=== PATIENT | female | born 1960 | race Caucasian/White ===

== ENCOUNTER → 2017-08-19 | Outpatient (CLI) | payer OTHER ==
--- NOTE | 2017-08-19 16:37 | REP ---
Bilateral screening digital mammogram: There are no palpable abnormalities or other breast complaints. The patient states she had a clinical breast exam in August 2017. Comparison is 02/12/2011. The breast parenchyma is predominately adipose, unchanged. There has been no interval development of masses, areas of structural distortion or clusters of microcalcifications typical of malignancy. Impression: There is no evidence of malignancy. BIRADS category 1 negative mammogram. The patient should have a repeat mammogram in 1 year. This mammogram was interpreted with the aid of an FDA-approved computer-aided detection system. A. Negative x-ray reports should not delay biopsy if a dominant or clinically suspicious mass is present. B. Not all breast cancers are identified by x-ray. C. Adenosis and dense breasts may obscure an underlying neoplasm The patient letter being requested is M1.
== END ==
LOC: M WHC 10:08
PROVIDERS: ATTEND Nurse Practitioner Women's Health
DX: Z12.31 Encounter for screening mammogram for malignant neoplasm of breast (principal)

== ENCOUNTER → 2017-08-19 | Outpatient (REF) | payer OTHER | LOC: M SFHCWAGY 10:21 | PROVIDERS: ATTEND Nurse Practitioner Women's Health | DX: Z12.4 Encounter for screening for malignant neoplasm of cervix (principal); N95.2 Postmenopausal atrophic vaginitis ==

== ENCOUNTER → 2018-03-03 | Outpatient (REF) | payer OTHER | LOC: M SFHCLERA 20:26 | DX: Z20.818 Contact with and (suspected) exposure to other bacterial communicable diseases (principal) ==

== ENCOUNTER → 2018-08-22 | Outpatient (CLI) | payer OTHER | LOC: M WHC 11:07 | DX: Z12.31 Encounter for screening mammogram for malignant neoplasm of breast (principal); Z78.0 Asymptomatic menopausal state; Z92.29 Personal history of other drug therapy; Z80.3 Family history of malignant neoplasm of breast | CPT/HCPCS: 77067 ==

== ENCOUNTER → 2022-03-19 | Outpatient (CLI) | payer OTHER, SELFPAY ==
[~2022-03-19] MED LIST: CELE100C PO; HYDR12CA PO; LEVO112T2 PO; LIDOCAINE 1% MDV 20ML VIAL As Ordered ONE; OMEP1CAP73 PO
[2022-03-19 13:37] VITALS: BP 158/81
== END ==
LOC: M IRPRO 12:04
PROVIDERS: ATTEND Internal Medicine Endocrinology, Diabetes & Metabolism
DX: R59.0 Localized enlarged lymph nodes (principal)

== ENCOUNTER → 2022-04-02 | Outpatient (REF) | payer OTHER ==
[~2022-04-02] MED LIST changes: -LIDOCAINE 1% MDV 20ML VIAL As Ordered ONE
== END ==
LOC: M LAB REF 15:16
PROVIDERS: ATTEND Internal Medicine Endocrinology, Diabetes & Metabolism
DX: E04.1 Nontoxic single thyroid nodule (principal)

== ENCOUNTER → 2022-07-24 | Outpatient (CLI) | payer OTHER ==
[~2022-07-24] MED LIST changes: +ISOVUE-370 76% 100ML VIAL As Ordered ONE
== END ==
LOC: M RAD 16:20
PROVIDERS: ATTEND Otolaryngology
DX: R22.1 Localized swelling, mass and lump, neck (principal); M50.31 Other cervical disc degeneration, high cervical region; M50.321 Other cervical disc degeneration at C4-C5 level; M50.322 Other cervical disc degeneration at C5-C6 level; M50.323 Other cervical disc degeneration at C6-C7 level
CPT/HCPCS: 70491; Q9967

== ENCOUNTER → 2023-08-23 | Outpatient (CLI) | payer OTHER | LOC: M RAD 08:53 | PROVIDERS: ATTEND Otolaryngology | DX: C07 Malignant neoplasm of parotid gland (principal); Z98.890 Other specified postprocedural states | CPT/HCPCS: 70491; Q9967 ==

== ENCOUNTER 2024-11-23 21:41 | Inpatient (IN) | payer MEDICARE, OTHER ==
[~2024-11-23] VITALS: Ht 157.5 cm; Wt 92.3 kg
[~2024-11-23 21:41] MED LIST changes: -ISOVUE-370 76% 100ML VIAL As Ordered ONE
[2024-11-23 22:14] LABS: VENOUS BASE EXCESS 0.7 (-2.0-2.0); VENOUS HCO3 30.2 MMOL/L (23.0-27.0); VENOUS O2 SATURATION 48.3 % (60.0-80.0); VENOUS PARTIAL PRESSURE CO2 74.4 mmHg (38.0-50.0); VENOUS PARTIAL PRESSURE O2 34.4 mmHg (30.0-50.0); VENOUS PH 7.226 UNITS (7.330-7.430); VENOUS TOTAL CO2 32.5 MMOL/L (24.0-28.0)
[2024-11-23 22:22] LABS: HEMATOCRIT 35.4 % (36.0-47.0); HEMOGLOBIN 11.6 g/dl (12.0-15.5); MEAN CORPUSCULAR HEMOGLOBIN 35.9 pg (27.0-33.0); MEAN CORPUSCULAR HGB CONC 32.8 g/dl (32.0-36.5); MEAN CORPUSCULAR VOLUME 109.6 fl (80.0-96.0); PLATELET COUNT, AUTOMATED 125 10^3/uL (150-450); RED BLOOD COUNT 3.23 10^6/uL (4.00-5.40); WHITE BLOOD COUNT 8.6 10^3/uL (4.0-10.0)
[2024-11-23 22:36] LABS: INR 1.08; PROTHROMBIN TIME 14.4 SECONDS (12.5-14.5)
[2024-11-23 22:39] LABS: BLOOD UREA NITROGEN 18 MG/DL (9-23); CALCIUM LEVEL 8.6 MG/DL (8.3-10.6); CARBON DIOXIDE LEVEL 31 MMOL/L (20-31); CHLORIDE LEVEL 101 MMOL/L (98-107); CPK CREATINE PHOSPHOKINASE 126 U/L (34-145); CREATININE FOR GFR 0.68 MG/DL (0.55-1.30); GLOMERULAR FILTRATION RATE > 60.0 (>45); GLUCOSE, FASTING 99 MG/DL (74-106); POTASSIUM SERUM 3.6 MMOL/L (3.5-5.1); SODIUM LEVEL 135 MMOL/L (136-145)
[2024-11-23 22:40] LABS: CK-MB VALUE MASS 1.3 NG/ML (<3.6); MB/CK RELATIVE INDEX 1.03 (< OR =4)
[2024-11-23] MEDS: ONDANSETRON 4MG 2ML VIAL IV ONE (22:59)
[2024-11-23] MEDS: HYDROMORPHONE HCL 0.5 MG/ 0.5 ML SYRINGE IV PRN (23:00)
[2024-11-24] MEDS: ACETAMINOPHEN *IV* 1,000 MG in IV 1 EA IV ONE (00:16)
[2024-11-24] MEDS ORDERED: HYDROMORPHONE HCL 0.5 MG/ 0.5 ML SYRINGE IV PRN (01:05)
[2024-11-24] MEDS ORDERED: MOM 30ML SUSPENSION UDC PO PRN (01:05)
[2024-11-24] MEDS ORDERED: MAALOX 30 ML SUSP *UDC PO PRN (01:05)
[2024-11-24] MEDS ORDERED: NALOXONE INJ 0.4MG/1ML VIAL IV PRN (01:05)
[2024-11-24] MEDS: LR 1,000 ML IV SCH (01:05)
[2024-11-24 01:40] LABS: ETHYL ALCOHOL (ETHANOL) 0.146 % (0.000-0.010); MAGNESIUM LEVEL 1.3 MG/DL (1.8-2.4)
[2024-11-24] MEDS ORDERED: SYNT88TA2 PO (01:58)
[2024-11-24] MEDS ORDERED: ELIQ5TAB PO (01:58)
[2024-11-24] MEDS ORDERED: ALBU8.5H INH (01:58)
[2024-11-24] MEDS ORDERED: RHODIOLA PO (01:58)
[2024-11-24] MEDS ORDERED: THERTAB52 PO (01:58)
[2024-11-24] MEDS ORDERED: CELE1CAP99 PO (01:58)
[2024-11-24] MEDS ORDERED: HOME MED LIST COMPLETE! XX SCH (02:00)
[2024-11-24] MEDS: HYDROMORPHONE HCL 0.5 MG/ 0.5 ML SYRINGE IV PRN ×2 (05:26→11:11)
[2024-11-24 08:16] LABS: BASO # 0.1 10^3/uL (0.0-0.2); BASO % 0.5 % (0.0-1.0); EOS % 0.1 % (0.0-3.0); HEMATOCRIT 32.7 % (36.0-47.0); HEMOGLOBIN 10.7 g/dl (12.0-15.5); LYMPH % 9.3 % (24.0-44.0); MEAN CORPUSCULAR HEMOGLOBIN 35.8 pg (27.0-33.0); MEAN CORPUSCULAR HGB CONC 32.7 g/dl (32.0-36.5); MEAN CORPUSCULAR VOLUME 109.4 fl (80.0-96.0); MONO # 0.6 10^3/uL (0.0-0.8); MONO % 5.3 % (2.0-8.0); NEUTROPHILS # 9.1 10^3/uL (1.5-8.5); NEUTROPHILS % 82.9 % (36.0-66.0); PLATELET COUNT, AUTOMATED 120 10^3/uL (150-450); RED BLOOD COUNT 2.99 10^6/uL (4.00-5.40); WHITE BLOOD COUNT 10.9 10^3/uL (4.0-10.0)
[2024-11-24 08:46] LABS: ALBUMIN 2.9 G/DL (3.2-5.2); ALKALINE PHOSPHATASE 87 U/L (35-104); ALT/SGPT 86 U/L (7.0-40); AST/SGOT 95 U/L (<34); BILIRUBIN,TOTAL 0.7 MG/DL (0.3-1.2); BLOOD UREA NITROGEN 17 MG/DL (9-23); CALCIUM LEVEL 8.6 MG/DL (8.3-10.6); CARBON DIOXIDE LEVEL 30 MMOL/L (20-31); CHLORIDE LEVEL 102 MMOL/L (98-107); CREATININE FOR GFR 0.53 MG/DL (0.55-1.30); GLOMERULAR FILTRATION RATE > 60.0 (>45); GLUCOSE, FASTING 114 MG/DL (74-106); POTASSIUM SERUM 4.3 MMOL/L (3.5-5.1); SODIUM LEVEL 135 MMOL/L (136-145); TOTAL PROTEIN 9.8 G/DL (5.7-8.2)
[2024-11-24] MEDS: MULTIVITAMINS/MINERALS THERAP 1 TAB PO SCH (09:00)
[2024-11-24] MEDS: THIAMINE 100 MG TAB PO SCH (09:00)
[2024-11-24] MEDS: FOLIC ACID 1MG TAB PO SCH (09:00)
[2024-11-24] MEDS: DOCUSATE SODIUM 100MG CAPSULE PO SCH (10:03)
[2024-11-24] MEDS: hydroCHLOROthiazide 12.5 MG CAPSULE PO SCH (11:12)
[2024-11-24] MEDS: LEVOTHYROXINE 88MCG TABLET (0.088 MG) PO SCH (11:35)
[2024-11-24] MEDS: ACETAMINOPHEN 325 MG TAB PO PRN (11:36)
[2024-11-24 12:22] LABS: MAGNESIUM LEVEL 1.2 MG/DL (1.8-2.4)
[2024-11-24 14:00] VITALS: BP 141/98; TEMP 97.9; O2SAT 95
[2024-11-24] MEDS: MAG SULF 1GM/100ML (MAG RUN) 1 GM in IV 1 EA IV SCH (14:00)
[2024-11-24 14:15] VITALS: BP 162/85
[2024-11-24] MEDS: LORazepam 2 MG TAB PO PRN (14:35)
[2024-11-24] MEDS: PANTOPRAZOLE 40MG TAB (PROTONIX) PO SCH (16:51)
[2024-11-24 16:52] LABS: HEMATOCRIT 29.2 % (36.0-47.0); HEMOGLOBIN 9.6 g/dl (12.0-15.5); MEAN CORPUSCULAR HEMOGLOBIN 36.2 pg (27.0-33.0); MEAN CORPUSCULAR HGB CONC 32.9 g/dl (32.0-36.5); MEAN CORPUSCULAR VOLUME 110.2 fl (80.0-96.0); PLATELET COUNT, AUTOMATED 108 10^3/uL (150-450); RED BLOOD COUNT 2.65 10^6/uL (4.00-5.40); WHITE BLOOD COUNT 9.6 10^3/uL (4.0-10.0)
[2024-11-24 19:54] VITALS: BP 146/96; TEMP 97.9; O2SAT 94
[2024-11-24 20:30] VITALS: BP 146/96
[2024-11-25] VITALS (16 sets, daily range): BP systolic 98–148; BP diastolic 58–98; TEMP 97–98.1; O2SAT 94–97
[2024-11-25 01:27] LABS: BASO % 0.3 % (0.0-1.0); EOS % 0.5 % (0.0-3.0); HEMATOCRIT 27.4 % (36.0-47.0); LYMPH # 1.1 10^3/uL (1.5-5.0); LYMPH % 12.9 % (24.0-44.0); MEAN CORPUSCULAR HGB CONC 32.8 g/dl (32.0-36.5); MEAN CORPUSCULAR VOLUME 109.6 fl (80.0-96.0); MONO # 0.7 10^3/uL (0.0-0.8); MONO % 7.7 % (2.0-8.0); NEUTROPHILS # 6.7 10^3/uL (1.5-8.5); NEUTROPHILS % 76.7 % (36.0-66.0); PLATELET COUNT, AUTOMATED 107 10^3/uL (150-450); WHITE BLOOD COUNT 8.7 10^3/uL (4.0-10.0)
[2024-11-25] MEDS ORDERED: ONDANSETRON 4MG 2ML VIAL As Ordered ONE (07:37)
[2024-11-25] MEDS ORDERED: propofoL 200 MG/20 ML VIAL As Ordered ONE (07:37)
[2024-11-25] MEDS ORDERED: LIDOCAINE 2% 100MG/5ML SDV (FOR ANES.) As Ordered ONE (07:37)
[2024-11-25] MEDS ORDERED: ROCURONIUM BROMIDE 50MG/5ML VIAL As Ordered ONE (07:37)
[2024-11-25] MEDS ORDERED: fentaNYL 100 MCG/2 ML INJECTION As Ordered ONE (07:37)
[2024-11-25] MEDS ORDERED: MIDAZOLAM INJ 2MG/2ML VIAL As Ordered ONE (07:37)
[2024-11-25] MEDS: METHOCARBAMOL 1,000 MG/10 ML VIAL IV PRN (07:43)
[2024-11-25] MEDS ORDERED: ALBUTEROL SULFATE 2.5MG/0.5ML INH NEB SOLN INH PRN (08:30)
[2024-11-25] MEDS ORDERED: MEPERIDINE 25 MG/ML 1ML VIAL IV PRN (08:30)
[2024-11-25] MEDS ORDERED: HYDROMORPHONE HCL 0.5 MG/ 0.5 ML SYRINGE IV PRN (08:30)
[2024-11-25] MEDS ORDERED: PROMETHAZINE 25MG/ML 1ML VIAL IV PRN ×2 (08:30→12:00)
[2024-11-25] MEDS ORDERED: ONDANSETRON 4MG 2ML VIAL IV PRN (08:30)
[2024-11-25] MEDS: ceFAZolin 2 GM/D5W 50 ML IV BAG As Ordered ONE (08:49)
[2024-11-25] MEDS: TRANEXAMIC ACID 100 MG/ML 10ML VIAL As Ordered ONE (09:08)
[2024-11-25] MEDS ORDERED: PHENYLEPHRINE 10MG/ML 1ML VIAL As Ordered ONE (09:17)
[2024-11-25] MEDS ORDERED: PHENYLephrine 500MCG 5ML (100MCG/ML) SYRINGE As Ordered ONE (09:20)
[2024-11-25] MEDS ORDERED: ePHEDrine SULFATE 25 MG/5 ML(5MG/ML) SYRINGE As Ordered ONE (09:20)
[2024-11-25] MEDS ORDERED: SUGAMMADEX SODIUM 500 MG/5 ML VIAL (BRIDION) As Ordered ONE (09:20)
[2024-11-25] MEDS ORDERED: LACRILUBE (AKWA TEARS) OPHTH OINT 3.5GM As Ordered ONE (09:25)
[2024-11-25] MEDS: BUPivacaine LIPOSOME/PF 266MG 20ML VIAL (13.3MG/ML)(EXPAREL) As Ordered ONE (09:49)
[2024-11-25] MEDS: ONDANSETRON 4MG 2ML VIAL IV PRN (12:07)
[2024-11-25] MEDS: ceFAZolin SOD 2 GM in IV 1 EA IV SCH (17:00)
[2024-11-25] MEDS: PERCOCET 5MG/325MG TAB PO PRN (18:35)
[2024-11-25 18:43] LABS: HEMATOCRIT 25.3 % (36.0-47.0); HEMOGLOBIN 8.3 g/dl (12.0-15.5); MEAN CORPUSCULAR HGB CONC 32.8 g/dl (32.0-36.5); MEAN CORPUSCULAR VOLUME 106.8 fl (80.0-96.0); RED BLOOD COUNT 2.37 10^6/uL (4.00-5.40); WHITE BLOOD COUNT 7.8 10^3/uL (4.0-10.0)
[2024-11-25 19:07] LABS: PLATELET COUNT, AUTOMATED 77 10^3/uL (150-450)
[2024-11-25 19:08] LABS: BLOOD UREA NITROGEN 8 MG/DL (9-23); CALCIUM LEVEL 7.7 MG/DL (8.3-10.6); CARBON DIOXIDE LEVEL 34 MMOL/L (20-31); CHLORIDE LEVEL 100 MMOL/L (98-107); CREATININE FOR GFR 0.55 MG/DL (0.55-1.30); GLOMERULAR FILTRATION RATE > 60.0 (>45); GLUCOSE, FASTING 122 MG/DL (74-106); POTASSIUM SERUM 3.9 MMOL/L (3.5-5.1); SODIUM LEVEL 137 MMOL/L (136-145)
[2024-11-25 19:25] LABS: IRON (FE) 88 UG/DL (50-170); PERCENT SATURATION 45.1 % (13.2-45.0); TOTAL IRON BINDING CAPACITY 195 UG/DL (250-425)
[2024-11-25 19:27] LABS: FERRITIN 882.1 NG/ML (7.3-270.7)
[2024-11-25 19:28] LABS: FOLATE 16.32 NG/ML (>5.4); VITAMIN B12 LEVEL 738 PG/ML (211-911)
[2024-11-25] MEDS: IPRATROPIUM 0.5MG/ALBUTEROL 2.5MG INH SOL UD 3ML (DUONEB) NEB SCH (20:00)
[2024-11-25] MEDS ORDERED: HEPARIN SOD (PORCINE) 5000UNITS/ML 1ML VIAL/SYRINGE SQ SCH (22:00)
[2024-11-26] VITALS (12 sets, daily range): BP systolic 99–120; BP diastolic 58–72; TEMP 97.3–97.9; O2SAT 90–97
[2024-11-26 00:34] LABS: HEMATOCRIT 24.5 % (36.0-47.0); HEMOGLOBIN 8.1 g/dl (12.0-15.5); MEAN CORPUSCULAR HEMOGLOBIN 35.5 pg (27.0-33.0); MEAN CORPUSCULAR HGB CONC 33.1 g/dl (32.0-36.5); MEAN CORPUSCULAR VOLUME 107.5 fl (80.0-96.0); RED BLOOD COUNT 2.28 10^6/uL (4.00-5.40); WHITE BLOOD COUNT 6.7 10^3/uL (4.0-10.0)
[2024-11-26 00:37] LABS: PLATELET COUNT, AUTOMATED 72 10^3/uL (150-450)
[2024-11-26] MEDS: MORPHINE 2 MG/ML 1ML VIAL IV PRN (04:19)
[2024-11-26 07:06] LABS: BASO % 0.3 % (0.0-1.0); EOS % 0.3 % (0.0-3.0); HEMATOCRIT 23.9 % (36.0-47.0); HEMOGLOBIN 7.8 g/dl (12.0-15.5); LYMPH # 0.9 10^3/uL (1.5-5.0); MEAN CORPUSCULAR HEMOGLOBIN 35.3 pg (27.0-33.0); MEAN CORPUSCULAR HGB CONC 32.6 g/dl (32.0-36.5); MEAN CORPUSCULAR VOLUME 108.1 fl (80.0-96.0); MONO # 0.6 10^3/uL (0.0-0.8); MONO % 8.6 % (2.0-8.0); NEUTROPHILS % 74.7 % (36.0-66.0); RED BLOOD COUNT 2.21 10^6/uL (4.00-5.40); WHITE BLOOD COUNT 6.6 10^3/uL (4.0-10.0)
[2024-11-26 07:10] LABS: PLATELET COUNT, AUTOMATED 69 10^3/uL (150-450)
[2024-11-26 07:26] LABS: BLOOD UREA NITROGEN 7 MG/DL (9-23); CALCIUM LEVEL 7.9 MG/DL (8.3-10.6); CARBON DIOXIDE LEVEL 36 MMOL/L (20-31); CHLORIDE LEVEL 100 MMOL/L (98-107); CREATININE FOR GFR 0.57 MG/DL (0.55-1.30); GLOMERULAR FILTRATION RATE > 60.0 (>45); GLUCOSE, FASTING 94 MG/DL (74-106); MAGNESIUM LEVEL 1.4 MG/DL (1.8-2.4); POTASSIUM SERUM 3.7 MMOL/L (3.5-5.1); SODIUM LEVEL 139 MMOL/L (136-145)
[2024-11-26] MEDS: MAG SULF 1GM/100ML (MAG RUN) 1 GM in IV 1 EA IV SCH (08:14)
[2024-11-27 03:58] VITALS: BP 112/63; TEMP 97.9; O2SAT 92
[2024-11-27 06:30] LABS: HEMOGLOBIN 8.3 g/dl (12.0-15.5); MEAN CORPUSCULAR HEMOGLOBIN 33.6 pg (27.0-33.0); MEAN CORPUSCULAR HGB CONC 31.9 g/dl (32.0-36.5); MEAN CORPUSCULAR VOLUME 105.3 fl (80.0-96.0); RED BLOOD COUNT 2.47 10^6/uL (4.00-5.40); WHITE BLOOD COUNT 8.3 10^3/uL (4.0-10.0)
[2024-11-27 06:36] LABS: PLATELET COUNT, AUTOMATED 76 10^3/uL (150-450)
[2024-11-27 06:44] LABS: BLOOD UREA NITROGEN 10 MG/DL (9-23); CARBON DIOXIDE LEVEL 35 MMOL/L (20-31); CHLORIDE LEVEL 98 MMOL/L (98-107); GLOMERULAR FILTRATION RATE > 60.0 (>45); GLUCOSE, FASTING 98 MG/DL (74-106); MAGNESIUM LEVEL 1.6 MG/DL (1.8-2.4); POTASSIUM SERUM 3.7 MMOL/L (3.5-5.1); SODIUM LEVEL 136 MMOL/L (136-145)
[2024-11-27 07:50] LABS: EOSINOPHILS 1 % (0-3); LYMPHOCYTES 12 % (16-44); METAMYELOCYTES 1 % (0-0); MONOCYTES 5 % (0-5); NEUTROPHILS 65 % (28-66)
[2024-11-27 07:51] LABS: ANISOCYTOSIS 2+; PLATELET ESTIMATE DECREASED (NORMAL)
[2024-11-27] MEDS: MAG SULF 1GM/100ML (MAG RUN) 1 GM in IV 1 EA IV SCH (08:08)
[2024-11-27] MEDS: MAGNESIUM OXIDE 400MG TAB (MAG-OX) PO SCH (10:40)
[2024-11-27 11:59] VITALS: BP 111/62; TEMP 97.7; O2SAT 95
[2024-11-27] MEDS: PERCOCET 5MG/325MG TAB PO PRN (14:04)
[2024-11-27 20:05] VITALS: BP 114/81; TEMP 97.2
[2024-11-27 21:00] VITALS: BP 114/81; TEMP 97.2; O2SAT 90
[2024-11-28 04:33] VITALS: BP 113/66; TEMP 97.7; O2SAT 95
[2024-11-28 04:53] VITALS: BP 113/66
[2024-11-28 06:10] LABS: BASO % 0.5 % (0.0-1.0); EOS # 0.1 10^3/uL (0.0-0.5); EOS % 1.1 % (0.0-3.0); HEMATOCRIT 25.1 % (36.0-47.0); HEMOGLOBIN 8.2 g/dl (12.0-15.5); LYMPH % 12.8 % (24.0-44.0); MEAN CORPUSCULAR HEMOGLOBIN 34.7 pg (27.0-33.0); MEAN CORPUSCULAR HGB CONC 32.7 g/dl (32.0-36.5); MEAN CORPUSCULAR VOLUME 106.4 fl (80.0-96.0); MONO # 0.6 10^3/uL (0.0-0.8); MONO % 7.1 % (2.0-8.0); NEUTROPHILS # 5.8 10^3/uL (1.5-8.5); NEUTROPHILS % 71.7 % (36.0-66.0); RED BLOOD COUNT 2.36 10^6/uL (4.00-5.40); WHITE BLOOD COUNT 8.1 10^3/uL (4.0-10.0)
[2024-11-28 06:21] LABS: PLATELET COUNT, AUTOMATED 82 10^3/uL (150-450)
[2024-11-28 06:33] LABS: BLOOD UREA NITROGEN 10 MG/DL (9-23); CALCIUM LEVEL 8.1 MG/DL (8.3-10.6); CARBON DIOXIDE LEVEL 35 MMOL/L (20-31); CHLORIDE LEVEL 96 MMOL/L (98-107); GLOMERULAR FILTRATION RATE > 60.0 (>45); GLUCOSE, FASTING 93 MG/DL (74-106); MAGNESIUM LEVEL 1.6 MG/DL (1.8-2.4); POTASSIUM SERUM 3.6 MMOL/L (3.5-5.1); SODIUM LEVEL 135 MMOL/L (136-145)
[2024-11-28] MEDS ORDERED: BISACODYL 10MG SUPP PR PRN (08:30)
[2024-11-28] MEDS: SENNA 8.6 MG TAB (SENOKOT) PO SCH (08:52)
[2024-11-28] MEDS: MIRALAX *UNIT DOSE* 17GM PACKET PO SCH (08:54)
[2024-11-28] MEDS: MAG SULF 1GM/100ML (MAG RUN) 1 GM in IV 1 EA IV SCH (08:59)
[2024-11-28] MEDS: APIXABAN 5 MG TAB (ELIQUIS) PO SCH (10:38)
[2024-11-28 12:34] VITALS: BP 116/66; TEMP 97.5; O2SAT 93
[2024-11-28 14:13] LABS: KETONE, URINE AUTO RFX NEGATIVE (NEGATIVE); MUCUS, URINE RFX SMALL (NEGATIVE); NITRITE, URINE AUTO RFX NEGATIVE (NEGATIVE); RBC, URINE AUTO RFX 4 /HPF (0-3); SQUAM EPITHELIAL CELL UR AURFX 32 /HPF (0-6); TRANSITIONAL EPITHELIAL AU RFX 11 /HPF
[2024-11-28 14:16] LABS: LEUKOCYTE ESTERASE UR AUTO RFX 2+ (NEGATIVE); WBC, URINE AUTO RFX 73 /HPF (0-3)
[2024-11-28 20:03] VITALS: BP 128/68; TEMP 97.2; O2SAT 95
[2024-11-28] MEDS: AUGMENTIN 875 MG TAB PO SCH (21:20)
[2024-11-29 04:00] VITALS: BP 109/56; TEMP 97.9; O2SAT 96
[2024-11-29 06:24] LABS: BASO % 0.4 % (0.0-1.0); EOS # 0.1 10^3/uL (0.0-0.5); EOS % 1.1 % (0.0-3.0); HEMATOCRIT 25.1 % (36.0-47.0); HEMOGLOBIN 8.2 g/dl (12.0-15.5); LYMPH # 0.9 10^3/uL (1.5-5.0); LYMPH % 12.7 % (24.0-44.0); MEAN CORPUSCULAR HEMOGLOBIN 34.9 pg (27.0-33.0); MEAN CORPUSCULAR HGB CONC 32.7 g/dl (32.0-36.5); MEAN CORPUSCULAR VOLUME 106.8 fl (80.0-96.0); MONO # 0.6 10^3/uL (0.0-0.8); MONO % 8.3 % (2.0-8.0); NEUTROPHILS # 4.9 10^3/uL (1.5-8.5); NEUTROPHILS % 69.6 % (36.0-66.0); RED BLOOD COUNT 2.35 10^6/uL (4.00-5.40); WHITE BLOOD COUNT 7.1 10^3/uL (4.0-10.0)
[2024-11-29 06:36] LABS: PLATELET COUNT, AUTOMATED 96 10^3/uL (150-450)
[2024-11-29 06:52] LABS: BLOOD UREA NITROGEN 10 MG/DL (9-23); CALCIUM LEVEL 7.8 MG/DL (8.3-10.6); CARBON DIOXIDE LEVEL 36 MMOL/L (20-31); CHLORIDE LEVEL 97 MMOL/L (98-107); CREATININE FOR GFR 0.57 MG/DL (0.55-1.30); GLOMERULAR FILTRATION RATE > 60.0 (>45); GLUCOSE, FASTING 96 MG/DL (74-106); MAGNESIUM LEVEL 1.6 MG/DL (1.8-2.4); SODIUM LEVEL 136 MMOL/L (136-145)
[2024-11-29 08:30] VITALS: BP 122/76; TEMP 97.2; O2SAT 95
[2024-11-29 11:56] VITALS: BP 114/80; TEMP 97; O2SAT 90
[2024-11-29] MEDS: LACTULOSE 20GM/30ML SYRUP UDC PO SCH (13:17)
[2024-11-29] MEDS: BISACODYL 10MG SUPP PR ONE (13:17)
[2024-11-30 03:45] VITALS: BP 112/61; TEMP 97.5; O2SAT 96
[2024-11-30] MEDS: ALBUTEROL 90 MCG/ACT 8GM HFA INHALER INH PRN (05:50)
[2024-11-30 06:00] LABS: HEMATOCRIT 25.4 % (36.0-47.0); HEMOGLOBIN 8.2 g/dl (12.0-15.5); MEAN CORPUSCULAR HEMOGLOBIN 34.3 pg (27.0-33.0); MEAN CORPUSCULAR HGB CONC 32.3 g/dl (32.0-36.5); MEAN CORPUSCULAR VOLUME 106.3 fl (80.0-96.0); PLATELET COUNT, AUTOMATED 127 10^3/uL (150-450); RED BLOOD COUNT 2.39 10^6/uL (4.00-5.40); WHITE BLOOD COUNT 7.7 10^3/uL (4.0-10.0)
[2024-11-30 06:23] LABS: BLOOD UREA NITROGEN 12 MG/DL (9-23); CALCIUM LEVEL 7.9 MG/DL (8.3-10.6); CARBON DIOXIDE LEVEL 35 MMOL/L (20-31); CHLORIDE LEVEL 98 MMOL/L (98-107); CREATININE FOR GFR 0.59 MG/DL (0.55-1.30); GLOMERULAR FILTRATION RATE > 60.0 (>45); GLUCOSE, FASTING 91 MG/DL (74-106); POTASSIUM SERUM 3.8 MMOL/L (3.5-5.1); SODIUM LEVEL 137 MMOL/L (136-145)
[2024-11-30 08:00] VITALS: BP 116/64; TEMP 97.9; O2SAT 93
[2024-11-30 12:00] VITALS: BP 135/73; TEMP 97.9; O2SAT 90
[2024-11-30] MEDS ORDERED: ELIQ5TAB PO (12:05)
== END 2024-11-30 14:10 | DRG 481 ==
LOC: M ED 21:41 → EDBD 21:41 → M ED INP 11-24 01:01 → M MS5PR 11-24 14:19
PROVIDERS: ADMIT Family Medicine; ATTEND Student in an Organized Health Care Education/Training Program
PROC: 0QSB04Z Reposition Right Lower Femur with Internal Fixation Device, Open Approach (ICD-10-PCS; principal; 2024-11-25 08:30)
PROC: 30233N1 Transfusion of Nonautologous Red Blood Cells into Peripheral Vein, Percutaneous Approach (ICD-10-PCS; 2024-11-26)
DX: S72.321A Displaced transverse fracture of shaft of right femur, initial encounter for closed fracture (principal); M97.01XA Periprosthetic fracture around internal prosthetic right hip joint, initial encounter; D62 Acute posthemorrhagic anemia; K21.9 Gastro-esophageal reflux disease without esophagitis; E03.9 Hypothyroidism, unspecified; I10 Essential (primary) hypertension; D69.6 Thrombocytopenia, unspecified; F10.20 Alcohol dependence, uncomplicated; G47.33 Obstructive sleep apnea (adult) (pediatric); J45.909 Unspecified asthma, uncomplicated; E66.9 Obesity, unspecified; Z68.37 Body mass index [BMI] 37.0-37.9, adult; F41.9 Anxiety disorder, unspecified; F40.240 Claustrophobia; R09.02 Hypoxemia; E83.42 Hypomagnesemia; R33.9 Retention of urine, unspecified; K59.00 Constipation, unspecified; W00.0XXA Fall on same level due to ice and snow, initial encounter; Y93.89 Activity, other specified; Y92.018 Other place in single-family (private) house as the place of occurrence of the external cause; Y99.8 Other external cause status; Z96.641 Presence of right artificial hip joint; Z98.84 Bariatric surgery status; Z79.51 Long term (current) use of inhaled steroids; Z79.01 Long term (current) use of anticoagulants; Z88.8 Allergy status to other drugs, medicaments and biological substances; Z86.718 Personal history of other venous thrombosis and embolism; Z91.018 Allergy to other foods; Z90.49 Acquired absence of other specified parts of digestive tract

== ENCOUNTER → 2024-12-13 | Outpatient (CLI) | payer MEDICARE ==
[~2024-12-13] MED LIST changes: +ALBU8.5H INH; +CELE1CAP99 PO; +ELIQ5TAB PO; +RHODIOLA PO; +SYNT88TA2 PO; +THERTAB52 PO
== END ==
LOC: M SOG 07:53
PROVIDERS: ATTEND Physician Assistant
DX: S72.91XA Unspecified fracture of right femur, initial encounter for closed fracture (principal); W18.30XA Fall on same level, unspecified, initial encounter; Y92.009 Unspecified place in unspecified non-institutional (private) residence as the place of occurrence of the external cause

== ENCOUNTER → 2024-12-27 | Outpatient (CLI) | payer MEDICARE | LOC: M SOG 08:32 | PROVIDERS: ATTEND Orthopaedic Surgery | DX: S72.91XA Unspecified fracture of right femur, initial encounter for closed fracture (principal); W18.30XA Fall on same level, unspecified, initial encounter; Y92.009 Unspecified place in unspecified non-institutional (private) residence as the place of occurrence of the external cause ==

== ENCOUNTER 2025-02-08 10:46 | Emergency (ER) | payer MEDICARE ==
[~2025-02-08] VITALS: Ht 157.5 cm; Wt 91.2 kg
[2025-02-08] MEDS: diazePAM 10MG/2ML SYRINGE IV ONE (12:43)
[2025-02-08 12:52] LABS: BASO % 0.6 % (0.0-1.0); EOS # 0.1 10^3/uL (0.0-0.5); EOS % 1.8 % (0.0-3.0); HEMATOCRIT 34.2 % (36.0-47.0); HEMOGLOBIN 11.3 g/dl (12.0-15.5); LYMPH # 1.4 10^3/uL (1.5-5.0); LYMPH % 26.2 % (24.0-44.0); MEAN CORPUSCULAR HEMOGLOBIN 36.6 pg (27.0-33.0); MEAN CORPUSCULAR VOLUME 110.7 fl (80.0-96.0); MONO # 0.5 10^3/uL (0.0-0.8); MONO % 8.3 % (2.0-8.0); NEUTROPHILS # 3.3 10^3/uL (1.5-8.5); NEUTROPHILS % 61.3 % (36.0-66.0); PLATELET COUNT, AUTOMATED 105 10^3/uL (150-450); RED BLOOD COUNT 3.09 10^6/uL (4.00-5.40); WHITE BLOOD COUNT 5.4 10^3/uL (4.0-10.0)
[2025-02-08 12:53] LABS: BLOOD UREA NITROGEN 19 MG/DL (9-23); CALCIUM LEVEL 8.9 MG/DL (8.3-10.6); CARBON DIOXIDE LEVEL 33 MMOL/L (20-31); CHLORIDE LEVEL 97 MMOL/L (98-107); CREATININE FOR GFR 0.64 MG/DL (0.55-1.30); GLOMERULAR FILTRATION RATE > 90.0 (>45); GLUCOSE, FASTING 86 MG/DL (74-106); POTASSIUM SERUM 4.3 MMOL/L (3.5-5.1); SODIUM LEVEL 135 MMOL/L (136-145)
[2025-02-08 13:00] LABS: INR 1.36
[2025-02-08 16:00] VITALS: BP 168/85; O2SAT 94
[2025-02-08 16:23] VITALS: TEMP 96.7
== END 2025-02-08 16:24 | disposition short-term general hospital (02) ==
LOC: EDBD 10:46 → M ED 10:46
DX: M96.661 Fracture of femur following insertion of orthopedic implant, joint prosthesis, or bone plate, right leg (principal); M25.461 Effusion, right knee; M11.261 Other chondrocalcinosis, right knee; I10 Essential (primary) hypertension; I28.9 Disease of pulmonary vessels, unspecified; E03.9 Hypothyroidism, unspecified; Z98.84 Bariatric surgery status; Z79.01 Long term (current) use of anticoagulants; J30.89 Other allergic rhinitis; Z86.711 Personal history of pulmonary embolism; Z86.718 Personal history of other venous thrombosis and embolism; Z79.899 Other long term (current) drug therapy; Z91.018 Allergy to other foods; Z88.8 Allergy status to other drugs, medicaments and biological substances
CPT/HCPCS: 71045; 73502; 73560; 80048; 85025; 85610; 93005; 96372; 99285; J3360